=== PATIENT | female | born 1935 | race Caucasian/White ===

== ENCOUNTER → 2020-03-12 13:24 | Outpatient (CLI) | payer MEDICARE ==
[2015-12-08 12:10] VITALS: BMI 31.6
[~2020-03-12 13:24] MED LIST: CALCIUM 600+D T1 TA1 PO; CALTRATE 600 M600 M1 PO; CENTRUM COMPLE1 EACH PO; CHROMIUM PICO200 MC1 PO; COSOPT EYE DROPS5 ML EACH EYE; JANUVIA100 MG PO; PREDNISONE20 MG PO; SILVADENE CREAM50 GM TP; SYNTHROID125 MCG PO; ULTRACET TABLET1 TAB PO; VITAMIN D31000 UNIT PO; ZOCOR10 MG PO
[2020-03-12 14:11] LABS: HEMATOCRIT 32.4 % (36.0-48.0); HEMOGLOBIN 10.4 g/dL (12-16); MCH 31.2 pg (26.0-34.0); MCHC 32.1 g/dL (31.0-37.0); MCV 97.3 fL (80.0-100.0); MEAN PLATELET VOLUME 11.2 fL (7.4-10.4); PLATELET COUNT 142 10x3/uL (130-400); RBC 3.33 10x6/uL (4.00-5.40); RDW 14.7 % (11.5-14.5)
[2020-03-12 14:44] LABS: EOSINOPHILS 1 % (0-7); LYMPHOCYTES 28 % (15-50); MONOCYTES 2 % (2-11); NEUTROPHILS 69 % (40-80); PLATELET ESTIMATE NORMAL
== END | disposition home or self-care (01) ==
LOC: D.LABREF 13:24
PROVIDERS: ATTEND Legal Medicine
DX: C50.012 Malignant neoplasm of nipple and areola, left female breast (principal)

== ENCOUNTER → 2021-01-16 16:56 | Outpatient (CLI) | payer MEDICARE ==
[2015-12-08 12:10] VITALS: BMI 31.6
[2021-01-16 17:38] LABS: BILIRUBIN NEGATIVE (NEGATIVE); KETONE NEGATIVE (NEGATIVE); NITRITE NEGATIVE (NEGATIVE); UROBILINOGEN NORMAL mg/dL (< 2)
[2021-01-16 17:39] LABS: BACTERIA MANY HPF (NONE SEEN); SQUAMOUS EPITHELIAL 0-5 HPF (0-4)
== END | disposition home or self-care (01) ==
LOC: D.LABREF 16:56
PROVIDERS: ATTEND Family Medicine
DX: R82.90 Unspecified abnormal findings in urine (principal)

== ENCOUNTER → 2021-02-25 20:24 | Outpatient (CLI) | payer MEDICARE ==
[2015-12-08 12:10] VITALS: BMI 31.6
[2021-02-25 20:52] LABS: ANION GAP 15.5 mmol/L (8-16); CALCIUM 7.9 mg/dL (8.5-10.1); CARBON DIOXIDE 25.2 mmol/L (21.0-32.0); CREATININE - SERUM 3.2 mg/dL (0.6-1.3); POTASSIUM - SERUM 4.7 mmol/L (3.5-5.1)
== END | disposition home or self-care (01) ==
LOC: D.LABREF 20:24
PROVIDERS: ATTEND Family Medicine
DX: N18.4 Chronic kidney disease, stage 4 (severe) (principal)

== ENCOUNTER → 2021-03-18 20:08 | Outpatient (CLI) | payer MEDICARE ==
[2015-12-08 12:10] VITALS: BMI 31.6
[2021-03-18 20:28] LABS: HEMATOCRIT 20.4 % (36.0-48.0)
[2021-03-18 20:30] LABS: BASOPHILS 0.8 % (0-2); EOSINOPHILS 4.3 % (0-7); LYMPHOCYTES 23.1 % (15-50); MCH 29.6 pg (26.0-34.0); MCHC 32.4 g/dL (31.0-37.0); MCV 91.2 fL (80.0-100.0); MEAN PLATELET VOLUME 9.2 fL (7.4-10.4); MONOCYTES 7.6 % (2-11); NEUTROPHILS 64.2 % (40-80); PLATELET COUNT 193 10x3/uL (130-400); RBC 2.24 10x6/uL (4.00-5.40); RDW 18.3 % (11.5-14.5); WBC 9.9 10x3/uL (4.8-10.8)
[2021-03-18 20:36] LABS: HEMOGLOBIN 6.6 g/dL (12-16)
[2021-03-18 20:38] LABS: ANION GAP 17.5 mmol/L (8-16); BILIRUBIN - TOTAL 0.34 mg/dL (0.2-1.3); CALCIUM 7.7 mg/dL (8.5-10.1); CARBON DIOXIDE 24.9 mmol/L (21.0-32.0); CREATININE - SERUM 3.8 mg/dL (0.6-1.3); POTASSIUM - SERUM 4.4 mmol/L (3.5-5.1); PROTEIN - SERUM 6.4 g/dL (6.4-8.2)
== END | disposition home or self-care (01) ==
LOC: D.LABREF 20:08
PROVIDERS: ATTEND Family Medicine
DX: I69.353 Hemiplegia and hemiparesis following cerebral infarction affecting right non-dominant side (principal); E11.618 Type 2 diabetes mellitus with other diabetic arthropathy; N18.4 Chronic kidney disease, stage 4 (severe)

== ENCOUNTER → 2021-03-27 12:37 | Outpatient (CLI) | payer MEDICARE ==
[2015-12-08 12:10] VITALS: BMI 31.6
[2021-03-27 13:48] LABS: BASOPHILS 0.7 % (0-2); EOSINOPHILS 6.7 % (0-7); HEMATOCRIT 23.3 % (36.0-48.0); HEMOGLOBIN 7.6 g/dL (12-16); LYMPHOCYTES 27.9 % (15-50); MCH 28.9 pg (26.0-34.0); MCHC 32.4 g/dL (31.0-37.0); MCV 89.2 fL (80.0-100.0); MEAN PLATELET VOLUME 9.3 fL (7.4-10.4); MONOCYTES 7.3 % (2-11); NEUTROPHILS 57.4 % (40-80); PLATELET COUNT 173 10x3/uL (130-400); RBC 2.62 10x6/uL (4.00-5.40); WBC 7.5 10x3/uL (4.8-10.8)
[2021-03-27 14:35] LABS: ALBUMIN 2.5 g/dL (3.4-5.0); ANION GAP 14.8 mmol/L (8-16); BILIRUBIN - TOTAL 0.34 mg/dL (0.2-1.3); CARBON DIOXIDE 27.9 mmol/L (21.0-32.0); CHOL - HDL RATIO 3.2 ratio (2.3-4.1); CREATININE - SERUM 3.6 mg/dL (0.6-1.3); LDL-HDL RATIO 1.7 ratio (1.5-3.5); POTASSIUM - SERUM 3.7 mmol/L (3.5-5.1); PROTEIN - SERUM 5.5 g/dL (6.4-8.2); THYROID STIMULATING HORMONE 31.55 uIU/mL (0.36-3.74)
== END | disposition home or self-care (01) ==
LOC: D.LABREF 12:37
PROVIDERS: ATTEND Family Medicine
DX: I69.353 Hemiplegia and hemiparesis following cerebral infarction affecting right non-dominant side (principal); K92.2 Gastrointestinal hemorrhage, unspecified; D50.0 Iron deficiency anemia secondary to blood loss (chronic); N30.00 Acute cystitis without hematuria

== ENCOUNTER → 2021-03-30 20:01 | Outpatient (CLI) | payer MEDICARE ==
[2015-12-08 12:10] VITALS: BMI 31.6
[2021-03-30 20:39] LABS: BACTERIA MOD HPF (<MOD); BILIRUBIN NEGATIVE (NEGATIVE); KETONE NEGATIVE mg/dL (< 1+); NITRITE NEGATIVE (NEGATIVE); SQUAMOUS EPITHELIAL 24 HPF (0-4); UROBILINOGEN NORMAL mg/dL (< 2); WHITE CELLS - URINE >182 HPF (0-4)
[2021-03-30 20:44] LABS: CREATININE - URINE 88.6 mg/dL (30-125); PROTEIN - URINE 131.6 mg/dL (0.0-11.9)
== END | disposition home or self-care (01) ==
LOC: D.LABREF 20:01
PROVIDERS: ATTEND Family Medicine
DX: N18.4 Chronic kidney disease, stage 4 (severe) (principal)

== ENCOUNTER → 2021-04-10 12:06 | Outpatient (CLI) | payer MEDICARE ==
[2015-12-08 12:10] VITALS: BMI 31.6
[2021-04-10 13:54] LABS: HEMATOCRIT 26.6 % (36.0-48.0); HEMOGLOBIN 8.7 g/dL (12-16)
== END | disposition home or self-care (01) ==
LOC: D.LABREF 12:06
PROVIDERS: ATTEND Family Medicine
DX: I69.353 Hemiplegia and hemiparesis following cerebral infarction affecting right non-dominant side (principal); D63.1 Anemia in chronic kidney disease